=== PATIENT | female | born 1945 | race Asian ===

== ENCOUNTER → 2021-07-22 | Outpatient (CLI) | payer MEDICARE, OTHER | END | disposition home or self-care (01) | LOC: RADMN 10:39 | PROVIDERS: ATTEND Family Medicine | DX: I51.7 Cardiomegaly (principal); I70.0 Atherosclerosis of aorta; Q25.46 Tortuous aortic arch; M54.9 Dorsalgia, unspecified | CPT/HCPCS: 71046 ==

== ENCOUNTER → 2021-08-04 | Outpatient (CLI) | payer MEDICARE, OTHER | END | disposition home or self-care (01) | LOC: RADMN 10:54 | PROVIDERS: ATTEND Family Medicine | DX: M51.34 Other intervertebral disc degeneration, thoracic region (principal); R07.9 Chest pain, unspecified; N64.4 Mastodynia | CPT/HCPCS: 72146 ==

== ENCOUNTER → 2022-12-21 | Outpatient (CLI) | payer MEDICARE, OTHER | END | disposition home or self-care (01) | LOC: RADMN 13:32 | PROVIDERS: ATTEND Family Medicine | DX: J98.11 Atelectasis (principal); M47.814 Spondylosis without myelopathy or radiculopathy, thoracic region | CPT/HCPCS: 71046 ==